=== PATIENT | male | born 1970 | race African-American/Black ===

== ENCOUNTER 2017-03-10 15:44 | Emergency (ER) | payer OTHER ==
[~2017-03-10] VITALS: Ht 182.9 cm; Wt 82.0 kg
[2017-03-10 16:08] VITALS: BP 165/99
== END 2017-03-10 18:36 | disposition left against medical advice (07) ==
LOC: ER 15:44
DX: R10.9 Unspecified abdominal pain (principal); Z53.21 Procedure and treatment not carried out due to patient leaving prior to being seen by health care provider

== ENCOUNTER 2017-07-11 18:21 | Inpatient (IN) | payer OTHER ==
[~2017-07-11] VITALS: Ht 182.9 cm; Wt 87.2 kg
[2017-07-11] MEDS ORDERED: NITROGLYCERIN OINT 1GM/INCH UDPKT TD ONE (20:30)
[2017-07-11] MEDS ORDERED: ASPIRIN 325MG TABLET PO ONE (20:30)
[2017-07-11 21:03] LABS: BASOPHILS % 0.8 % (0.0-2.0); EOSINOPHILS % 2.3 % (0.0-5.0); HEMATOCRIT. 40.3 % (42.0-52.0); HEMOGLOBIN. 13.6 g/dL (14.0-18.0); LYMPHOCYTES % 30.8 % (20.0-50.0); MEAN CORPUSCULAR VOLUME 91.6 fL (80.0-94.0); MEAN PLATELET VOLUME 7.6 fl (7.4-10.4); MONOCYTES % 9.2 % (2.0-8.0); NEUTROPHILS % 56.9 % (40.0-76.0); PLATELET 272 x1000/uL (130-400); RED CELL DISTRIBUTION WIDTH 13.8 % (11.6-14.6)
[2017-07-11 21:09] LABS: PROTHROMBIN TIME 10.3 sec (9.4-11.6)
[2017-07-11 21:10] LABS: CHLORIDE 104 mEq/L (98-107)
[2017-07-11 22:52] LABS: CHLORIDE 105 mEq/L (98-107)
[2017-07-11 23:45] VITALS: BP 128/93
[2017-07-12] VITALS: BP 128/93
[2017-07-12] MEDS ORDERED: HYDROCODONE/ACETAMINOPHEN 5/325MG TABLET PO PRN (00:35)
[2017-07-12] MEDS ORDERED: MAGNESIUM/ALUMINUM HYDROXIDE/SIMETHICONE 30ML UDC PO PRN (00:37)
[2017-07-12] MEDS ORDERED: ACETAMINOPHEN 325MG TABLET PO PRN (00:37)
[2017-07-12] MEDS ORDERED: NA PHOS,M-B/NA PHOS,DI-BA ENEMA 118ML PR PRN (00:40)
[2017-07-12] MEDS ORDERED: DIPHENHYDRAMINE 50MG/ML VIAL IV PRN (00:42)
[2017-07-12] MEDS ORDERED: LORAZEPAM 2MG/ML CPJ IV PRN (00:49)
[2017-07-12] MEDS ORDERED: DOCUSATE SODIUM 100MG CAPSULE PO PRN (00:49)
[2017-07-12] MEDS ORDERED: GUAIFENESIN 200MG/10ML SUGAR FREE UDC PO PRN (00:49)
[2017-07-12] MEDS ORDERED: MORPHINE SULFATE 4 MG/ML CPJ (NOT FOR IM USE) IV PRN (00:56)
[2017-07-12] MEDS ORDERED: IPRATROPIUM/ALBUTEROL 0.5-3(2.5)MG/3ML NEB INH PRN (00:56)
[2017-07-12 04:00] VITALS: BP 111/63
[2017-07-12 06:29] LABS: CHLORIDE 106 mEq/L (98-107)
[2017-07-12 06:37] LABS: BASOPHILS % 0.8 % (0.0-2.0); EOSINOPHILS % 3.1 % (0.0-5.0); HEMATOCRIT. 39.1 % (42.0-52.0); MEAN CORPUSCULAR HEMOGLOBIN 30.6 pg (28.0-32.0); MEAN CORPUSCULAR VOLUME 91.9 fL (80.0-94.0); MEAN PLATELET VOLUME 7.9 fl (7.4-10.4); MONOCYTES % 10.9 % (2.0-8.0); NEUTROPHILS % 41.2 % (40.0-76.0); PLATELET 257 x1000/uL (130-400); RED BLOOD CELL COUNT 4.26 mill/uL (4.7-6.1); RED CELL DISTRIBUTION WIDTH 13.9 % (11.6-14.6)
[2017-07-12 06:41] LABS: LDL CHOLESTEROL 101 mg/dL (5-100)
[2017-07-12 06:42] LABS: T4 FREE 1.08 ng/dL (0.76-1.46)
[2017-07-12 06:43] LABS: HDL CHOLESTEROL 46 mg/dL (40-59)
[2017-07-12 08:00] VITALS: BP 111/62
[2017-07-12] MEDS: ENOXAPARIN 40MG/0.4ML SYR SUBCUT SCH (08:54)
[2017-07-12] MEDS: ASPIRIN 81MG EC TABLET PO SCH (08:54)
[2017-07-12] MEDS ORDERED: POTASSIUM CHLORIDE 20MEQ TABLET SR PO NR (10:34)
[2017-07-12 12:00] VITALS: BP 115/78
[2017-07-12 16:00] VITALS: BP 132/95
[2017-07-12 16:37] LABS: CLARITY URINE CLEAR (CLEAR); COLOR URINE DARK YELLOW (YELLOW); KETONES URINE NEGATIVE (NEGATIVE); LEUKOCYTE ESTERASE URINE NEGATIVE (NEGATIVE); NITRITE URINE NEGATIVE (NEGATIVE); OCCULT BLOOD URINE TRACE (NEGATIVE); PROTEIN URINE NEGATIVE (NEGATIVE); SPECIFIC GRAVITY URINE 1.029 (1.005-1.030)
[2017-07-12 16:52] LABS: *AMPHETAMINES SCREEN URINE NEGATIVE (NEGATIVE); *BARBITURATES SCREEN URINE NEGATIVE (NEGATIVE); *BENZODIAZEPINES SCREEN URINE NEGATIVE (NEGATIVE); *COCAINE SCREEN URINE PRESUMTIVE POSITIVE (NEGATIVE)
[2017-07-12 16:54] LABS: CANNABINOID URINE SCREEN PRESUMTIVE POSITIVE (NEGATIVE); METHADONE URINE SCREEN NEGATIVE (NEGATIVE); OPIATES URINE SCREEN NEGATIVE (NEGATIVE); PHENCYCLIDINE URINE SCREEN NEGATIVE (NEGATIVE)
[2017-07-12 20:00] VITALS: BP 146/102
[2017-07-12] MEDS: CLONIDINE 0.1MG TABLET PO PRN (20:48)
[2017-07-13] VITALS: BP 139/88
[2017-07-13 04:00] VITALS: BP 119/78
[2017-07-13 08:00] VITALS: BP 154/103
[2017-07-13] MEDS: CLONIDINE 0.1MG TABLET PO PRN (08:54)
[2017-07-13] MEDS: ASPIRIN 81MG EC TABLET PO SCH (08:54)
[2017-07-13] MEDS: ENOXAPARIN 40MG/0.4ML SYR SUBCUT SCH (08:54)
[2017-07-13 12:00] VITALS: BP 139/93
[2017-07-13] MEDS ORDERED: LOSARTAN POTASSIUM 25 MG TABLET PO SCH (12:45)
[2017-07-13 16:00] VITALS: BP 123/90
[2017-07-13 16:44] VITALS: BP 125/81
[2017-07-13] MEDS ORDERED: FUROSEMIDE 20MG TABLET PO SCH (21:00)
[2017-07-14] MEDS ORDERED: SPIRONOLACTONE 25MG TABLET PO SCH (09:00)
== END 2017-07-13 18:00 | disposition short-term general hospital (02) | DRG 313 ==
LOC: ER 18:21 → 5WST 21:30 → EDBEDREQ 21:34 → ENRESERV 21:41
PROVIDERS: ADMIT Internal Medicine; ATTEND Internal Medicine
DX: R07.89 Other chest pain (principal); I42.0 Dilated cardiomyopathy; E87.6 Hypokalemia; F41.9 Anxiety disorder, unspecified; I10 Essential (primary) hypertension; I49.3 Ventricular premature depolarization; D64.9 Anemia, unspecified; F17.200 Nicotine dependence, unspecified, uncomplicated; Z82.49 Family history of ischemic heart disease and other diseases of the circulatory system; Z91.018 Allergy to other foods; Z72.89 Other problems related to lifestyle
CPT/HCPCS: 36415; 71045; 80048; 80053; 80061; 80305; 81003; 83735; 84439; 84443; 84484; 85025; 85610; 93005; 93306; 99285; J1650

== ENCOUNTER 2019-12-25 15:29 | Inpatient (IN) | payer SELFPAY ==
[~2019-12-25] VITALS: Ht 182.9 cm; Wt 98.6 kg
[2019-12-25] MEDS ORDERED: ONDANSETRON HCL 4MG/2ML INJ IV STA (15:52)
[2019-12-25] MEDS ORDERED: MORPHINE SULFATE 4 MG/ML CPJ (NOT FOR IM USE) IV STA (15:52)
[2019-12-25] MEDS ORDERED: CLONIDINE 0.2MG TABLET PO ONE (16:00)
[2019-12-25 17:01] LABS: BASOPHILS % 0.8 % (0.0-2.0); EOSINOPHILS % 1.6 % (0.0-5.0); HEMATOCRIT. 49.5 % (42.0-52.0); HEMOGLOBIN. 16.8 g/dL (14.0-18.0); LYMPHOCYTES % 24.2 % (20.0-50.0); MEAN CORPUSCULAR HEMOGLOBIN 31.7 pg (28.0-32.0); MEAN CORPUSCULAR VOLUME 93.1 fL (80.0-94.0); MEAN PLATELET VOLUME 8.7 fl (7.4-10.4); MONOCYTES % 7.5 % (2.0-8.0); NEUTROPHILS % 65.9 % (40.0-76.0); PLATELET 292 x1000/uL (130-400); RED BLOOD CELL COUNT 5.32 mill/uL (4.7-6.1); RED CELL DISTRIBUTION WIDTH 13.1 % (11.6-14.6)
[2019-12-25 17:12] LABS: PROTHROMBIN TIME 10.3 sec (9.6-11.0)
[2019-12-25] MEDS ORDERED: LABETALOL 5MG/ML SYR 20 MG/4 ML SYRINGE IV NR (18:00)
[2019-12-25 18:17] LABS: CLARITY URINE CLEAR (CLEAR); COLOR URINE YELLOW (YELLOW); KETONES URINE TRACE (NEGATIVE); LEUKOCYTE ESTERASE URINE NEGATIVE (NEGATIVE); NITRITE URINE NEGATIVE (NEGATIVE); OCCULT BLOOD URINE 2+ (NEGATIVE); PROTEIN URINE NEGATIVE (NEGATIVE); SPECIFIC GRAVITY URINE 1.034 (1.005-1.030)
[2019-12-25 18:27] LABS: CHLORIDE 105 mEq/L (98-107)
[2019-12-25 18:32] LABS: *AMPHETAMINES SCREEN URINE NEGATIVE (NEGATIVE); *BARBITURATES SCREEN URINE NEGATIVE (NEGATIVE); *BENZODIAZEPINES SCREEN URINE NEGATIVE (NEGATIVE); *COCAINE SCREEN URINE PRESUMTIVE POSITIVE (NEGATIVE); METHADONE URINE SCREEN NEGATIVE (NEGATIVE); OPIATES URINE SCREEN PRESUMTIVE POSITIVE (NEGATIVE); PHENCYCLIDINE URINE SCREEN NEGATIVE (NEGATIVE)
[2019-12-25 18:33] LABS: CANNABINOID URINE SCREEN PRESUMTIVE POSITIVE (NEGATIVE)
[2019-12-25 21:30] VITALS: BP 120/79
[2019-12-25] MEDS ORDERED: MAGNESIUM/ALUMINUM HYDROXIDE/SIMETHICONE 30ML UDC PO PRN (23:45)
[2019-12-25] MEDS ORDERED: ACETAMINOPHEN 325MG TABLET PO PRN (23:45)
[2019-12-25] MEDS ORDERED: CLONIDINE 0.1MG TABLET PO PRN (23:45)
[2019-12-25] MEDS ORDERED: ONDANSETRON HCL 4MG/2ML INJ IV PRN (23:45)
[2019-12-25] MEDS ORDERED: DOCUSATE SODIUM 100MG CAPSULE PO PRN (23:45)
[2019-12-25] MEDS ORDERED: KETOROLAC 15MG/ML VIAL IV PRN (23:45)
[2019-12-26] MEDS ORDERED: DEXT 5%/0.45% NACL 1000ML 1,000 ML IV SCH
[2019-12-26 00:26] VITALS: BP 105/79
[2019-12-26 04:00] VITALS: BP 125/86
[2019-12-26 07:13] LABS: BASOPHILS % 0.4 % (0.0-2.0); EOSINOPHILS % 2.1 % (0.0-5.0); HEMATOCRIT. 42.3 % (42.0-52.0); HEMOGLOBIN. 14.3 g/dL (14.0-18.0); LYMPHOCYTES % 32.9 % (20.0-50.0); MEAN CORPUSCULAR HEMOGLOBIN 31.2 pg (28.0-32.0); MEAN CORPUSCULAR VOLUME 92.6 fL (80.0-94.0); MEAN PLATELET VOLUME 8.1 fl (7.4-10.4); MONOCYTES % 8.3 % (2.0-8.0); NEUTROPHILS % 56.3 % (40.0-76.0); PLATELET 248 x1000/uL (130-400); RED BLOOD CELL COUNT 4.57 mill/uL (4.7-6.1); RED CELL DISTRIBUTION WIDTH 13.2 % (11.6-14.6)
[2019-12-26 08:00] VITALS: BP 123/97
[2019-12-26 08:22] LABS: CHLORIDE 103 mEq/L (98-107)
[2019-12-26] MEDS ORDERED: LISINOPRIL 20MG TABLET PO SCH (09:00)
[2019-12-26] MEDS ORDERED: AMLODIPINE 10MG TABLET PO SCH (09:00)
[2019-12-26 11:24] VITALS: BP 126/89
== END 2019-12-26 12:48 | disposition home or self-care (01) | DRG 199 ==
LOC: ER 15:29 → 6WST 19:12 → EDBEDREQ 19:15 → ENRESERV 20:32
PROVIDERS: ADMIT Hospitalist; ATTEND Hospitalist
DX: I16.0 Hypertensive urgency (principal); E87.6 Hypokalemia; F17.200 Nicotine dependence, unspecified, uncomplicated; R73.9 Hyperglycemia, unspecified; I11.0 Hypertensive heart disease with heart failure; I50.9 Heart failure, unspecified; F19.10 Other psychoactive substance abuse, uncomplicated; Z91.018 Allergy to other foods; Z71.6 Tobacco abuse counseling
CPT/HCPCS: 36415; 71045; 80053; 80305; 81003; 83880; 84484; 85025; 93005; 93970; 96374; 99291; J1885; J2270; J2405; J3490

== ENCOUNTER 2025-01-19 06:40 | Inpatient (IN) | payer MEDICAID ==
[~2025-01-19] VITALS: Ht 182.9 cm; Wt 73.5 kg
[2025-01-19 06:48] VITALS: O2SAT 99
[2025-01-19] MEDS ORDERED: ACETAMINOPHEN 325MG TABLET PO ONE (07:30)
[2025-01-19 07:55] LABS: BASOPHILS % 0.7 % (0.0-2.0); EOSINOPHILS % 0.9 % (0.0-5.0); HEMATOCRIT. 46.6 % (42.0-52.0); HEMOGLOBIN. 15.7 g/dL (14.0-18.0); LYMPHOCYTES % 33.4 % (20.0-50.0); MEAN PLATELET VOLUME 8.1 fl (7.4-10.4); MONOCYTES % 8.3 % (2.0-8.0); NEUTROPHILS % 56.7 % (40.0-76.0); PLATELET 245 x1000/uL (130-400); RED BLOOD CELL COUNT 5.18 mill/uL (4.7-6.1); RED CELL DISTRIBUTION WIDTH 13.0 % (11.6-14.6)
[2025-01-19 08:10] LABS: TROPONIN I HIGH SENSITIVITY 52 ng/L (3.0-53)
[2025-01-19 08:12] LABS: CREATININE 1.0 mg/dL (0.6-1.3)
[2025-01-19 08:13] LABS: UREA NITROGEN BLOOD 7 mg/dL (9-23)
[2025-01-19 08:14] LABS: ASPARTATE AMINOTRANSFERASE 21 IU/L (<34)
[2025-01-19 08:15] LABS: BILIRUBIN DIRECT 0.2 mg/dL (<=3.0); BILIRUBIN TOTAL 0.9 mg/dL (0.1-1.0); PROTEIN TOTAL 6.6 g/dL (6.0-8.3)
[2025-01-19] MEDS: ONDANSETRON HCL 4MG/2ML INJ IV ONE (08:38)
[2025-01-19] MEDS: LACTATED RINGERS 1,000 ML IV SCH (08:38)
[2025-01-19] MEDS: ACETAMINOPHEN 325MG TABLET PO ONE (08:38)
[2025-01-19] MEDS: INSULIN REGULAR (HUMULIN R) 1000UNITS/10ML VIAL IV ONE (08:45)
[2025-01-19 09:30] VITALS: BP 156/109; PULSE 72; RESP 18; TEMP 37.1; TEMP 37.1408; O2SAT 99
[2025-01-19] MEDS ORDERED: ONDANSETRON HCL 4MG/2ML INJ IV PRN (10:45)
[2025-01-19] MEDS ORDERED: DEXTROSE 50% WATER 50ML SYRINGE IV PRN (10:45)
[2025-01-19] MEDS: METOCLOPRAMIDE HCL 10MG/2ML VIAL IV SCH (11:09)
[2025-01-19] MEDS: INSULIN GLARGINE 100 UNITS/ML SUBCUT NR (11:09)
[2025-01-19 12:00] VITALS: BP 146/105; PULSE 90; RESP 18; TEMP 36.8; O2SAT 98
[2025-01-19] MEDS: BLOOD SUGAR DIAGNOSTIC STRIP TEST SCH (12:22)
[2025-01-19] MEDS: AMLODIPINE 10MG TABLET PO SCH (12:35)
[2025-01-19] MEDS: INSULIN LISPRO 100 UNITS/ML SUBCUT SCH (14:02)
[2025-01-19 15:31] LABS: CLARITY URINE CLEAR (CLEAR); COLOR URINE YELLOW (YELLOW); GLUCOSE URINE 3+ (NEGATIVE); KETONES URINE TRACE (NEGATIVE); LEUKOCYTE ESTERASE URINE NEGATIVE (NEGATIVE); NITRITE URINE NEGATIVE (NEGATIVE); OCCULT BLOOD URINE NEGATIVE (NEGATIVE); PH URINE 6.5 (4.5-8.0); PROTEIN URINE NEGATIVE (NEGATIVE); SPECIFIC GRAVITY URINE 1.040 (1.005-1.030); UROBILINOGEN URINE 1.0 E.U./dL (0.2-1.0)
[2025-01-19 16:00] VITALS: BP 117/90; PULSE 63; RESP 18; TEMP 36.3; O2SAT 97
[2025-01-19 16:09] LABS: BACTERIA URINE TRACE; RBC URINE 0-2 /hpf (0-2); SQUAMOUS EPITHELIAL CELL URINE FEW /lpf (RARE/1+); WBC URINE 0-2 /hpf (0-2)
[2025-01-19] MEDS ORDERED: INFLUENZA VACCINE 05/PF 0.5 ML SYRINGE IM ONE (16:30)
[2025-01-19] MEDS ORDERED: PNEUMOCOCCAL 20-VAL CONJ-DIP CRM 0.5ML IM ONE (16:30)
[2025-01-19 20:00] VITALS: BP 105/62; PULSE 90; RESP 19; TEMP 36.2; O2SAT 100
[2025-01-19] MEDS: INSULIN GLARGINE 100 UNITS/ML SUBCUT SCH (21:33)
[2025-01-20] VITALS: BP 144/110; PULSE 76; RESP 20; TEMP 36.5; O2SAT 99
[2025-01-20 01:24] VITALS: BP 131/77; PULSE 97
[2025-01-20 04:00] VITALS: BP_SYST 125; BP_SYST 149; BP_DIAS 80; BP_DIAS 81; PULSE 89; PULSE 94; RESP 20; TEMP 36.2; TEMP 36.9; O2SAT 95; O2SAT 99
[2025-01-20 08:00] VITALS: BP 140/92; PULSE 60; RESP 18; TEMP 36.6; O2SAT 98
== END 2025-01-20 13:35 | disposition left against medical advice (07) | DRG 48 ==
LOC: ER 06:40 → 6WST 08:44 → EDBEDREQ 08:47 → EDBEDREQTM 08:47
PROVIDERS: ADMIT Internal Medicine; ATTEND Internal Medicine
DX: E11.43 Type 2 diabetes mellitus with diabetic autonomic (poly)neuropathy (principal); K56.7 Ileus, unspecified; N39.0 Urinary tract infection, site not specified; E11.65 Type 2 diabetes mellitus with hyperglycemia; I10 Essential (primary) hypertension; K31.84 Gastroparesis; F17.210 Nicotine dependence, cigarettes, uncomplicated; Z53.29 Procedure and treatment not carried out because of patient's decision for other reasons
CPT/HCPCS: 36415; 71045; 74176; 80048; 80076; 81003; 82010; 82962; 83036; 84484; 85025; 93005; 99291; J1815; J2405; J2765